=== PATIENT | male | born 1960 | race Caucasian/White ===

== ENCOUNTER 2017-01-14 | Day surgery (SDC) | payer MEDICARE ==
[~2017-01-14] MED LIST: ADULT LOW DOSE81 M1 PO; ADULT LOW DOSE81 MG PO; CPAP; FISH OIL; LIPITOR40 MG PO; LIPITOR80 M1 PO; MULTIVITAMINS1 EAC6 PO; NEXIUM20 MG PO; PLAVIX75 M1 PO; PLAVIX75 MG PO; VICODIN 5/500 T1 TAB PO; VITAMIN C500 M3 PO
== END 2017-01-14 11:00 ==
DX: C44.311 Basal cell carcinoma of skin of nose (principal); G47.30 Sleep apnea, unspecified; E78.00 Pure hypercholesterolemia, unspecified; E66.9 Obesity, unspecified; Z68.35 Body mass index [BMI] 35.0-35.9, adult; Z79.02 Long term (current) use of antithrombotics/antiplatelets; Z79.899 Other long term (current) drug therapy; Z87.891 Personal history of nicotine dependence; Z86.73 Personal history of transient ischemic attack (TIA), and cerebral infarction without residual deficits; Z98.890 Other specified postprocedural states